=== PATIENT | female | born 1960 | race Caucasian/White ===

== ENCOUNTER 2021-10-27 08:10 | Inpatient (IN) | payer MEDICARE, OTHER ==
[~2021-10-27] VITALS: Ht 165.1 cm; Wt 74.9 kg
[2021-10-27] MEDS ORDERED: ONDANSETRON HCL/PF 4 MG/2 ML VIAL ONE (08:46)
--- NOTE | 2021-10-27 08:50 | NUR ---
KEENA GOMEZ From Home "Flu-like symptoms/weal/nausea". On room air, breathing evenly and unlabored. Connected to the monitor and pulse ox. Kept comfortable, will continue to monitor accordingly.
[2021-10-27 08:53] LABS: BASOPHILS # (AUTO) 0.1 K/uL (0.0-0.2); BASOPHILS % (AUTO) 0.9 % (0.0-2.0); EOSINOPHILS % (AUTO) 2.3 % (0.0-6.0); HEMATOCRIT 47 % (33-45); HEMOGLOBIN 16.3 g/dL (11.5-14.8); LYMPHOCYTES # (AUTO) 4.5 K/uL (0.8-4.8); LYMPHOCYTES % (AUTO) 45.7 % (20.0-44.0); MEAN CORPUSCULAR HGB CONC 35 g/dl (31.0-36.0); MEAN CORPUSCULAR VOLUME 85 fL (82-100); MONOCYTES # (AUTO) 0.7 K/uL (0.1-1.30); NEUTROPHILS # (AUTO) 4.4 K/uL (1.8-8.9); NEUTROPHILS % (AUTO) 44.1 % (43.0-81.0); PLATELET COUNT (AUTO) 268 K/uL (150-450); RED BLOOD CELL COUNT(AUTO) 5.53 MIL/uL (4.0-5.2); WHITE BLOOD COUNT (AUTO) 9.9 K/uL (4.3-11.0)
--- NOTE | 2021-10-27 08:53 | NUR ---
IV started and blood collected and sent to lab.
[2021-10-27] MEDS ORDERED: ONDANSETRON HCL/PF 4 MG/2 ML VIAL IVP ONE (09:00)
[2021-10-27] MEDS ORDERED: IV NS 0.9% 1,000 ML BAG IV ONE (09:00)
[2021-10-27 09:13] LABS: ALBUMIN 4.4 g/dL (3.4-5.0); BILIRUBIN,DIRECT 0.1 mg/dL (0.0-0.2); BILIRUBIN,TOTAL 1.1 mg/dL (0.2-1.0); CREATININE 1.1 mg/dL (0.6-1.3); POTASSIUM 3.3 mmol/L (3.5-5.1); TOTAL PROTEIN, SERUM 8.6 g/dL (6.4-8.2)
[2021-10-27 09:14] LABS: ALCOHOL, BLOOD < 3 mg/dL (0-0)
[2021-10-27] MEDS ORDERED: MORPHINE SULFATE INJ 2 MG/ML DISP.SYRIN IV ONE (09:30)
[2021-10-27] MEDS ORDERED: MORPHINE SULFATE INJ 4 MG/ML DISP.SYRIN ONE (09:35)
--- NOTE | 2021-10-27 10:07 | NUR ---
urine collected and sent to lab.
[2021-10-27 10:16] LABS: THYROID STIMULATING HORMONE 0.168 uIU/mL (0.358-3.74)
--- NOTE | 2021-10-27 11:00 | NUR ---
rapid influenza collected and sent to lab.
[2021-10-27 11:19] LABS: BILIRUBIN,URINE NEGATIVE (NEGATIVE); COLOR,URINE YELLOW (YELLOW); LEUKOCYTE ESTERASE ,URINE NEGATIVE (NEGATIVE); NITRITE, URINE NEGATIVE (NEGATIVE); PH,URINE 7.5 (5.0-8.0); PROTEIN,URINE NEGATIVE (NEGATIVE); UGLUCOSE NEGATIVE (NEGATIVE); UROBILINOGEN,URINE 0.2 EU/dL (0.2)
[2021-10-27] MEDS ORDERED: DESM0.1T4 PO (12:28)
[2021-10-27] MEDS ORDERED: LEVO137T2 PO (12:28)
[2021-10-27] MEDS ORDERED: AMLO-213 PO (12:28)
--- NOTE | 2021-10-27 12:42 | NUR ---
covid swab collected and sent to lab.
--- NOTE | 2021-10-27 13:03 | NUR ---
MOVE SHEET SUBMITTED.
[2021-10-27] MEDS ORDERED: Z GUARD REMEDY 4 OZ OINT TP PRN (13:30)
[2021-10-27] MEDS ORDERED: MORPHINE SULFATE INJ 2 MG/ML DISP.SYRIN IV PRN (13:30)
[2021-10-27] MEDS ORDERED: ONDANSETRON HCL/PF 4 MG/2 ML VIAL IVP PRN (13:30)
[2021-10-27] MEDS ORDERED: ACETAMINOPHEN 325 MG TABLET PO PRN (13:30)
[2021-10-27 14:08] LABS: C-REACTIVE PROTEIN 0.2 mg/dL (0.0-0.9)
[2021-10-27] MEDS: IV NS 0.9% 1,000 ML IV SCH (15:15)
[2021-10-27] MEDS: DOCUSATE SODIUM LIQ 100 MG/10 ML UDC PO SCH (17:00)
--- NOTE | 2021-10-27 17:09 | NUR ---
STAT ABG PER DR DARDEN. THE ORDER IS READ BACK, VERIFIED. NOTED AND CARRIED OUT.
[2021-10-27 17:27] LABS: ABG BASE EXCESS -1.1 mmol/L; ABG PCO2 45.1 mmHg (35.0-45.0); ABG PH 7.356 (7.350-7.450); ABG PO2 61.8 mmHg (75.0-100.0); COHb 0.2 % (0.5-1.5); MetHb 0.4 % (0.0-1.5); SITE, ABG Right Radial; VENT MODE, BG RA
--- NOTE | 2021-10-27 17:36 | NUR ---
DR DARDEN MADE AWARE OF ABG RESULT. PER MD NO NEW ORDERS.
[2021-10-27] MEDS ORDERED: POTASSIUM CHLORIDE 20 MEQ TAB.PRT.SR PO SCH (18:00)
--- NOTE | 2021-10-27 18:24 | NUR ---
THE PATIENT IS SLEEPING. WILL ADMINISTER ORDERED KDUR WHEN THE PATIENT IS AWAKE. BATH HOUSE ATTENDANT WILL BE ENDORSED.
--- NOTE | 2021-10-27 19:41 | NUR ---
[id number] [facility]
--- NOTE | 2021-10-27 19:49 | NUR ---
REPORT GIVEN TO ANTONIO ARRINGTON
--- NOTE | 2021-10-27 20:09 | NUR ---
PATIENT TRANSFERRED, NO ACUTE DISTRESSED NOTED.
--- NOTE | 2021-10-27 20:25 | NUR ---
MS PREP MANAGER NOTES RECEIVED PATIENT FROM ER VIA GURNEY; PATIENT IS A/O X0, LETHARGIC, WAKES AND MOANS UPON STERNAL RUB. BREATHING IS EVEN AND NONLABORED. WITH IV ACCESS ON RIGHT ANTECUBITAL G#18 INFUSING WITH NS 1L REGULATED AT 75 ML/HR; PATENT, INTACT AND FLUSHES WELL. VS TAKEN AND RECORDED FOLLOWS: TEMP-100.8, GA-87, RR-19, BP-128/88 MM HG, O2 SAT ON PULSE OXIMETRY 96%. SKIN ASSESSMENT DONE; INTACT. SAFETY MEASURES AND ASPIRATION PRECAUTIONS IMPLEMENTED: HEAD OF BED ELEVATED TO 30 DEGREES, CALL LIGHT AND TABLE WITHIN EASY REACH, SIDE RAILS UP X2, BED IN LOWEST LOCKED POSITION. WILL CONTINUE TO MONITOR.
[2021-10-27 20:35] VITALS: BP 128/88
[2021-10-27] MEDS ORDERED: ACETAMINOPHEN 650 MG/SUPP.RECT RC PRN (21:00)
--- NOTE | 2021-10-27 21:05 | NUR ---
MS RN NOTES TYLENOL SUPPOSITORY 650 MG GIVEN PER RECTUM ORDERED. COOLING MEASURES RENDERED: ICE PACKS PLACED UNDER AXILLA AND GROIN.
[2021-10-27] MEDS ORDERED: CEFTRIAXONE 1 G VIAL IM SCH (22:00)
[2021-10-27] MEDS: HEPARIN SODIUM, PORCINE 5000 UNITS/1 ML VIAL SQ SCH (22:09)
[2021-10-27] MEDS ORDERED: VANCOMYCIN HCL 1.25 GM in IV D5W 260 ML IV ONE (22:30)
[2021-10-27] MEDS ORDERED: VANCOMYCIN 1 GM VIAL ONE ×2 (22:30→22:36)
--- NOTE | 2021-10-27 23:30 | NUR ---
MS RN NOTES TEMP RECHECKED: 99.3 DEGREES FAHRENHEIT. WILL CONTINUE TO MONITOR
[2021-10-28] MEDS: IV NS 0.9% 1,000 ML IV SCH (03:47)
[2021-10-28 06:39] LABS: BASOPHILS # (AUTO) 0.1 K/uL (0.0-0.2); BASOPHILS % (AUTO) 0.5 % (0.0-2.0); EOSINOPHILS % (AUTO) 1.2 % (0.0-6.0); HEMATOCRIT 44 % (33-45); LYMPHOCYTES # (AUTO) 3.7 K/uL (0.8-4.8); LYMPHOCYTES % (AUTO) 31.4 % (20.0-44.0); MEAN CORPUSCULAR HGB CONC 35 g/dl (31.0-36.0); MEAN CORPUSCULAR VOLUME 86 fL (82-100); MONOCYTES # (AUTO) 1.5 K/uL (0.1-1.30); MONOCYTES % (AUTO) 12.8 % (2.0-12.0); NEUTROPHILS # (AUTO) 6.4 K/uL (1.8-8.9); NEUTROPHILS % (AUTO) 54.1 % (43.0-81.0); PLATELET COUNT (AUTO) 259 K/uL (150-450); RED BLOOD CELL COUNT(AUTO) 5.09 MIL/uL (4.0-5.2); WHITE BLOOD COUNT (AUTO) 11.9 K/uL (4.3-11.0)
--- NOTE | 2021-10-28 07:30 | NUR ---
MS RN OPENING NOTES: RECEIVED PATIENT IN BED, INCOHERENT, LETHARGIC AND RESPONSIVE TO TACTILE AND PAIN STIMULI. NO SOB OR CARDIAC DISTRESS NOTED. NO SOB/NO CARDIAC DISTRESS NOTED, HOOKED TO 02 @ 2LPM VIA NC. ON IV ACCESS ON RAC G#18 NS @75ML/HR INFUSING WELL. SAFETY MEASURES MAINTAINED: BED LOCKED AND IN LOWEST POSITION, SIDE RAILS UP X 2. CALL LIGHT IN EASY REACH FOR HELP/ASSISTANCE.
[2021-10-28 07:31] LABS: ALBUMIN 3.9 g/dL (3.4-5.0); BILIRUBIN,TOTAL 1.5 mg/dL (0.2-1.0); CALCIUM, SERUM 9.8 mg/dL (8.5-10.1); CREATININE 1.3 mg/dL (0.6-1.3); MAGNESIUM 2.2 mg/dL (1.8-2.4); PHOSPHORUS 3.1 mg/dL (2.5-4.9); POTASSIUM 3.5 mmol/L (3.5-5.1); TOTAL PROTEIN, SERUM 7.7 g/dL (6.4-8.2)
--- NOTE | 2021-10-28 07:45 | NUR ---
MS RN CLOSING NOTES PATIENT IS IN BED; AWAKE, OPENS EYES UPON STERNAL RUB. BREATHING IS EVEN AND NONLABORED. NO SOB NOTED. ON O2 INHALATION AT 2LPM VIA NASAL CANNULA; TOLERATING WELL. WITH IV ACCESS ON RIGHT AC G#18 INFUSING WITH NS 1L AT 75 ML/HR; INTACT AND PATENT. DUE MEDS GIVEN. NEEDS ATTENDED. SAFETY MEASURES IN PLACED. ENDORSED TO NURSE MILLER FOR SENTHIL.
[2021-10-28 08:00] VITALS: BP 150/99
[2021-10-28] MEDS ORDERED: POLYETHYLENE GLYCOL 3350 17 GM POWD.PACK PO SCH (09:00)
[2021-10-28] MEDS: DOCUSATE SODIUM LIQ 100 MG/10 ML UDC PO SCH ×2 (09:00→17:55)
--- NOTE | 2021-10-28 09:19 | NUR ---
RN NOTES: UNABLE TO GIVE ORAL MEDS. PATIENT IS VERY LETHARGIC, UNABLE TO RESPONSE, UNABLE TO OPEN EYES AND MOUTH.
[2021-10-28] MEDS: HEPARIN SODIUM, PORCINE 5000 UNITS/1 ML VIAL SQ SCH (09:23)
[2021-10-28] MEDS ORDERED: CEFTRIAXONE 2 G in IV D5W 100 ML IV SCH (10:00)
[2021-10-28] MEDS ORDERED: VANCOMYCIN 1 GM in IV D5W 260 ML IV SCH (11:00)
--- NOTE | 2021-10-28 11:26 | NUR ---
RN NOTES: OBTAINED TELEPHONE CONSENT FROM DAUGHTER IVAN (PHONE # [phone]) FOR MRI OF THE BRAIN WITH OR WITHOUT CONTRAST. MRI CHECKLIST AND MRI QUESTIONAIRE OBTAINED FROM DAUGHTER.
[2021-10-28] MEDS ORDERED: CEFEPIME 1 GM in IV D5W 50 ML IV SCH (15:00)
[2021-10-28 16:00] VITALS: BP 131/85
--- NOTE | 2021-10-28 19:00 | NUR ---
MS RN CLOSING NOTES: PATIENT IN BED, STILL INCOHERENT, LETHARGIC AND RESPONSIVE TO TACTILE AND PAIN STIMULI. NO SOB OR CARDIAC DISTRESS NOTED. NO SOB/NO CARDIAC DISTRESS NOTED, HOOKED TO 02 @ 2LPM VIA NC. ON IV ACCESS ON LEFT HAND G#20 NS @75ML/HR INFUSING WELL. SAFETY MEASURES MAINTAINED: BED LOCKED AND IN LOWEST POSITION, SIDE RAILS UP X 2. CALL LIGHT IN EASY REACH FOR HELP/ASSISTANCE. PATIENT TO BE DISCHARGED TO [facility] FOR HIGHER LEVEL OF CARE. 8PM [facility]ER TONIGHT. REPORT GIVEN TO ANTONIO YARBROUGH, PATIENT WILL GO TO RM [id number]. NIKIA LOVE WAS INFORMED FOR PATIENT'S TRANSFER. ENDORSE TO NURSE ARRINGTON FOR CONTINUITY OF CARE
--- NOTE | 2021-10-28 19:15 | NUR ---
MS ALVAREZ CLOSING NOTES RECEIVED PATIENT IN BED; LETHARGIC, RESPONSIVE TO STERNAL RUB. NOT IN ANY FORM OF RESPIRATORY DISTRESS. WITH 2LPM OXYGEN INHALATION VIA NASAL CANNULA; TOLERATING WELL. WITH IV ACCESS ON RIGHT ANTECUBITAL G#18; PATENT, INTACT AND SALINE LOCKED. WITH SECOND IV ACCESS ON LEFT HAND G#20 INFUSING WITH NS 1L REGULATED AT 75 ML/HR; PATENT AND FLUSHES WELL. SAFETY MEASURES IMPLEMENTED: HEAD OF BED ELEVATED, CALL LIGHT AND TABLE WITHIN EASY REACH, SIDE RAILS UP X2, BED IN LOWEST LOCKED POSITION. WILL CONTINUE PLAN OF CARE. Addendum: 10/28/21 at 2345 by NURY CLARKE RN MS ALVAREZ OPENING NOTES
--- NOTE | 2021-10-28 20:35 | NUR ---
MS MANAGER SHIPPING NOTES DISCHARGED PATIENT WITH STABLE VITAL SIGNS VIA GURNEY TRANSPORTED BY [facility] TO [facility] FOR HIGH LEVEL OF CARE.
[2021-10-28] MEDS ORDERED: CEFEPIME 2 GM in IV D5W 100 ML IV SCH ×2 (21:00→22:00)
== END 2021-10-28 20:26 | disposition short-term general hospital (02) | DRG 97 ==
LOC: ER 08:12 → TRANSITION 14:55 → TELE 20:00 → MED 22:40
PROVIDERS: ADMIT Internal Medicine; ATTEND Internal Medicine
DX: G03.9 Meningitis, unspecified (principal); G93.41 Metabolic encephalopathy; E87.6 Hypokalemia; Z98.2 Presence of cerebrospinal fluid drainage device; Z79.899 Other long term (current) drug therapy; Z20.822 Contact with and (suspected) exposure to COVID-19; I10 Essential (primary) hypertension; E03.9 Hypothyroidism, unspecified; Z79.890 Hormone replacement therapy; Z86.69 Personal history of other diseases of the nervous system and sense organs; Z86.011 Personal history of benign neoplasm of the brain; Z98.890 Other specified postprocedural states
CPT/HCPCS: 36415; 36600; 70450-TC; 71045-TC; 80048-TC; 80053-TC; 80076-TC; 82140-TC; 82533; 82803-TC; 82962-TC; 83605-TC; 83690-TC; 83735-TC; 84100-TC; 84439-TC; 84443-TC; 84481; 85025-TC; 85652-TC; 85730-TC; 86140-TC; 87040-TC; 87081-TC; 95819-TC; 97112-TC; 97530-TC; C9803; G0378; G0480; J0692; J0696; J1644; J2270; J2405; J3370; J7030; J7060